=== PATIENT | female | born 1930 | race Caucasian/White ===

== ENCOUNTER 2017-09-16 18:35 | Inpatient (IN) | payer OTHER ==
[2017-09-16] MEDS ORDERED: ACETAMINOPHEN 325 MG TABLET (FP) PO ONE (18:54)
--- NOTE | 2017-09-16 18:54 | PDOC ---
History of Present Illness <Mai Oro - Last Filed: 09/16/17 18:50> - General History Source: Family Exam Limitations: No Limitations - History of Present Illness Initial Comments: 09/16/17 18:55 The patient is an 87-year-old female, with a significant past medical history of asthma and HTN, who presents to the ED s/p fall today. Pt states that her right knee buckled and she went down on her right hip. Pt has not been able to bear weight on her right leg due to pain. She denies any loss of consciousness. She denies taking any blood thinners. She denies having any other complaints. <Jyoti Cortez - Last Filed: 09/16/17 21:20> - General Chief Complaint: Injury Stated Complaint: RT KNEE PAIN Time Seen by Provider: 09/16/17 18:49 Past History - Past Medical History Asthma: Yes Cancer: Yes (status post left lumpectomy) HTN: Yes - Immunization History Td Vaccination: (3 years ago) - Suicide/Smoking/Psychosocial Hx Smoking History: Never smoked Have you smoked in the past 12 months: No Hx Alcohol Use: No (OCC) Substance Use Type: None <Mai Oro - Last Filed: 09/16/17 18:50> <Jyoti Cortez - Last Filed: 09/16/17 21:20> - Past Medical History Allergies/Adverse Reactions: Allergies Allergy/AdvReac Type Severity Reaction Status Date / Time cefixime [From Suprax] Allergy Verified 09/16/17 18:37 cephalexin [Cephalexin] Allergy Verified 09/16/17 18:37 latex Allergy Verified 09/16/17 18:37 Penicillins Allergy Verified 09/16/17 18:37 Home Medications: Ambulatory Orders Fluticasone Propionate [Flovent Diskus] 50 mcg IH DAILY 09/16/17 Latanoprost 0.005% Eye Drops [Xalatan 0.005% Eye Drops -] 1 drop OU HS 09/16/17 Montelukast Na [Singulair -] 10 mg PO HS 09/16/17 Olopatadine HCl 0.1% Ophth Wendy [Patanol (Nf)] 1 drop IO BID 09/16/17 Potassium Chloride [Klor-Con] 20 meq PO DAILY 09/16/17 Simvastatin 20 mg PO HS 09/16/17 Triamterene/Hydrochlorothiazid [Triamterene-Hctz 37.5-25 mg Cp] 1 each PO DAILY 09/16/17 Review of Systems - Review of Systems Able to Perform ROS?: Yes Comments:: 09/16/17 18:55 GENERAL/CONSTITUTIONAL: No fever or chills. No weakness. HEAD, EYES, EARS, NOSE AND THROAT: No change in vision. No ear pain or discharge. No sore throat. CARDIOVASCULAR: No chest pain or shortness of breath. RESPIRATORY: No cough, wheezing, or hemoptysis. GASTROINTESTINAL: No nausea, vomiting, diarrhea or constipation. GENITOURINARY: No dysuria, frequency, or change in urination. MUSCULOSKELETAL: (+)Right knee and hip pain. No joint swelling or pain. No neck or back pain. SKIN: No rash NEUROLOGIC: No headache, vertigo, loss of consciousness, or change in strength/ sensation. ENDOCRINE: No increased thirst. No abnormal weight change. HEMATOLOGIC/LYMPHATIC: No anemia, easy bleeding, or history of blood clots. ALLERGIC/IMMUNOLOGIC: No hives or skin allergy. <Jyoti Cortez - Last Filed: 09/16/17 21:20> *Physical Exam - Vital Signs Last Vital Signs Temp Pulse Resp BP Pulse Ox 98.1 F 88 16 151/78 100 09/16/17 18:35 09/16/17 18:35 09/16/17 18:35 09/16/17 18:35 09/16/17 18:35 - Physical Exam Comments: 09/16/17 18:56 GENERAL: Awake, alert, and fully oriented, in no acute distress HEAD: Atraumatic. No signs of trauma EYES: PERRLA, EOMI, sclera anicteric, conjunctiva clear ENT: Auricles normal inspection, nares patent, oropharynx clear without exudates. Moist mucosa. NECK: Normal ROM, supple, no lymphadenopathy, JVD, or masses LUNGS: Breath sounds equal, clear to auscultation bilaterally. No wheezes, and no crackles HEART: Regular rate and rhythm, normal S1 and S2, no murmurs, rubs or gallops ABDOMEN: Soft, nontender, normoactive bowel sounds. No guarding, no rebound. No masses EXTREMITIES: (+)Right hip and right knee tenderness with decreased range of motion due to pain. Right ankle is nontender. No clubbing or cyanosis. No cords , erythema. NEUROLOGICAL: SKIN: Warm, Dry, normal turgor, no rashes or lesions noted <Jyoti Cortez - Last Filed: 09/16/17 21:20> ED Treatment Course - RADIOLOGY Radiology Studies Ordered: Category Date Time Status HIP & PELVIS-RIGHT [RAD] Stat Radiology 09/16/17 18:49 Ordered KNEE 3 POS-RIGHT [RAD] Stat Radiology 09/16/17 18:49 Ordered <Mai Oro - Last Filed: 09/16/17 18:50> - LABORATORY CBC & Chemistry Diagram: 09/16/17 20:00 09/16/17 20:00 <Jyoti Cortez - Last Filed: 09/16/17 21:20> Medical Decision Making - Medical Decision Making 09/16/17 18:50 87yo F s/p fall c/o right knee and hip pain. Patient has been unable to ambulate after her fall secondary to pain states she did hit her head but denies any LOC does not take any blood thinners. Pain is mild has not taking anything for prior to her arrival. No associated deformity or swelling no ecchymosis no other injuries from her fall no complaints of neck or back pain. On exam her head is atraumatic her neck is nontender cardiac lung exam is unremarkable her right knee is tender to palpation with mild decreased range of motion secondary to pain no deformity no ecchymosis and no effusion. Right hip is tender to palpation has decreased flexion due to pain right ankle is nontender with full range of motion Differentials fracture versus contusion plan in control, x-rays of the hip and knee and reassessment patient lives at home with family who can help her ambulate will likely require outpatient follow-up if nothing is fractured <Mai Oro - Last Filed: 09/16/17 18:50> *DC/Admit/Observation/Transfer <Mai Oro - Last Filed: 09/16/17 18:50> - Attestations Scribe Attestion: 09/16/17 18:58 Documentation prepared by Jyoti Cortez, acting as medical microbiologist for Mai Oro MD. <Jyoti Cortez - Last Filed: 09/16/17 21:20> - Discharge Dispostion Condition at time of disposition: Stable
[2017-09-16] MEDS ORDERED: ACETAMINOPHEN 325 MG TABLET (FP) ONE (19:01)
--- NOTE | 2017-09-16 19:14 | PDOC ---
*Physical Exam - Vital Signs Last Vital Signs Temp Pulse Resp BP Pulse Ox 98.1 F 88 16 151/78 100 09/16/17 18:35 09/16/17 18:35 09/16/17 18:35 09/16/17 18:35 09/16/17 18:35 <Jyoti Cortez - Last Filed: 09/16/17 21:20> - Vital Signs Last Vital Signs Temp Pulse Resp BP Pulse Ox 98.1 F 88 16 151/78 100 09/16/17 18:35 09/16/17 18:35 09/16/17 18:35 09/16/17 18:35 09/16/17 18:35 <Sayra Zuluaga I - Last Filed: 09/16/17 21:47> ED Treatment Course - LABORATORY CBC & Chemistry Diagram: 09/16/17 20:00 09/16/17 20:00 - ADDITIONAL ORDERS Additional order review: Laboratory Results 09/16/17 09/16/17 09/16/17 20:20 20:00 20:00 PT with INR 12.2 INR 1.09 Sodium 137 Potassium 3.9 Chloride 99 Carbon Dioxide 29 H Anion Gap 9 BUN 24 H D Creatinine 0.8 D Creat Clearance w eGFR > 60 Random Glucose 93 Calcium 10.1 Total Bilirubin 0.5 AST 21 ALT 18 D Alkaline Phosphatase 50 D Creatine Kinase 99 Troponin I < 0.03 L Total Protein 7.8 Albumin 4.2 09/16/17 20:00 RBC 4.21 MCV 89.4 MCHC 33.6 RDW 12.6 MPV 7.9 Neutrophils % 71.4 Lymphocytes % 18.7 D Monocytes % 8.3 Eosinophils % 1.2 Basophils % 0.4 - Medications Given in the ED: ED Medications Discontinued Medications Generic Name Dose Route Start Last Admin Trade Name Freq PRN Reason Stop Dose Admin Acetaminophen 650 mg 09/16/17 18:54 09/16/17 19:00 Tylenol - PO 09/16/17 18:55 650 mg ONCE ONE Administration <Jyoti Cortez - Last Filed: 09/16/17 21:20> - LABORATORY CBC & Chemistry Diagram: 09/16/17 20:00 09/16/17 20:00 <Sayra Zuluaga I - Last Filed: 09/16/17 21:47> Progress Note - Progress Note Progress Note: Care of this patient was transferred to me from Dr. Oro at 1900 hrs. Patient is an 87-year-old female who fell on her right side. Patient said her knee gave out and she went down. Patient denies hitting her head or any loss of consciousness. Patient was unable to ambulate post fall secondary to pain in her hip and knee. Patient has a workup/x-rays pending for her complaints. 19:35 Knee x-ray negative for any acute pathology Right hip x-ray shows an impacted femoral neck fracture Reassessment of patient patient has tenderness on palpation over her hip. There is also some swelling and tenderness on palpation of the knee diffusely there is no patellar tenderness. Discussed with patient her x-ray findings of her hip fracture patient aware that she will need to be admitted to the hospital for surgical management of her hip fracture. Preadmission workup was ordered including chest x-ray, EKG, CBC, comprehensive medical panel, cardiac panel, type and screen, PT Head CT was also ordered given the patient's age and the fall even though she did not have any complaints of a headache or neurological symptoms or neurological abnormalities on exam. EKG shows normal sinus rhythm at a rate of 80 with a left bundle branch block. There is no old EKG to compare it to however patient denies any chest pain, syncope, near syncope, lightheadedness or cardiac symptoms prior to her fall. Chest x-ray interpreted by me there is no acute pathology there is no old chest x-ray to compare it to. 20:55 Reevaluated patient RE pain. Patient said she is comfortable does not need anything for pain at this time. Patient's head CT was done and read by the radiologist as no acute intracranial pathology severe microvascular disease and the age related volume loss. Dr. Layton was called orthopedist 21:[address] Layton who has accepted the patient and plans to take the patient to the operating room tomorrow morning for repair the hip. In addition to that discussed with the admitting team the hospitalist Dr. Dorman who was accepted the patient for admission and will do the medical clearance. <Sayra Zuluaga I - Last Filed: 09/16/17 21:47> Medical Decision Making - Medical Decision Making 09/16/17 21:20 09/16/17 20:55 Dr. Layton was paged and notified via phone service. Second page was placed at 21: 18. <Jyoti Coretz - Last Filed: 09/16/17 21:20> *DC/Admit/Observation/Transfer <Jyoti Cortez - Last Filed: 09/16/17 21:20> - Discharge Dispostion Admit: Yes <Sayra Zuluaga I - Last Filed: 09/16/17 21:47> Diagnosis at time of Disposition: Fracture of femoral neck, right Qualifiers: Encounter type: initial encounter Fracture type: closed Qualified Code(s): S72.001A - Fracture of unspecified part of neck of right femur, initial encounter for closed fracture - Discharge Dispostion Condition at time of disposition: Stable
[2017-09-16] MEDS ORDERED: SODIUM CHLORIDE 1,000 ML IV ONE (19:30)
[2017-09-16 20:39] LABS: BASOPHIL 0.4 % (0-2.0); EOSINOPHIL 1.2 % (0-4.5); MCH 30.1 pg (25.7-33.7); MCHC 33.6 g/dl (32.0-36.0); MEAN CELL VOLUME 89.4 fl (80-96); MEAN PLT VOLUME 7.9 fl (7.5-11.1); NEUTROPHILS 71.4 % (42.8-82.8); PLATELET COUNT 256 K/MM3 (134-434); RDW 12.6 % (11.6-15.6); WHITE BLOOD COUNT 6.3 K/mm3 (4.0-10.8)
[2017-09-16 20:46] LABS: INR 1.09 (0.82-1.09); PROTHROMBIN TIME (PATIENT) 12.2 SEC (10.2-13.0)
[2017-09-16 20:51] LABS: ALBUMIN 4.2 g/dl (3.5-5.0); ALK PHOS 50 U/L (32-92); ANION GAP 9 (8-16); BILIRUBIN,TOTAL 0.5 mg/dl (0.2-1.0); CALCIUM 10.1 mg/dl (8.4-10.2); CO2 29 mmol/L (22-28); CREATININE 0.8 mg/dl (0.6-1.3); GLUCOSE,RANDOM 93 mg/dl (74-106); SGOT/AST 21 U/L (10-42); SGPT/ALT 18 U/L (10-40); TOT PROT 7.8 g/dl (6.4-8.3)
[2017-09-16 20:51] LABS: CPK 99 IU/L (26-192)
[2017-09-16 21:07] LABS: TROPONIN I (DFP) < 0.03 ng/ml (0.03-0.50)
--- NOTE | 2017-09-16 21:48 | HP ---
CHIEF COMPLAINT: Right Hip Pain s/p fall PCP: HISTORY OF PRESENT ILLNESS: This is a 87 y/o woman with a past medical history HTN. Who presents to the ED with R- hip pain, unable to bear weight x today. Patient reports tripping up the stairs and falling onto her R- side and head. Patient reports being unable to bear weight onto the R- extremity. Patient denies LOC . Patient denies dizziness, SRIVASTAVA, fever, chills, cough, SOB, CP, Ap, N/V/D, constipation, dysuria ER course was notable for: (1) Xray Pelvis/R-Hip- acute R- femoral neck fx (2) CT Head- neg acute pathology (3) Xray R- knee- no acute fx or dislocation Recent Travel: None PAST MEDICAL HISTORY: HTN Asthma Glaucoma PAST SURGICAL HISTORY: Social History: Smoking: Never Alcohol: Occasional Drugs: None Lives alone- Independent Family History: Non-contributory Allergies cefixime [From Suprax] Allergy (Verified 09/16/17 18:37) cephalexin [Cephalexin] Allergy (Verified 09/16/17 18:37) latex Allergy (Verified 09/16/17 18:37) Penicillins Allergy (Verified 09/16/17 18:37) HOME MEDICATIONS: Home Medications Medication Instructions Recorded Fluticasone Propionate [Flovent 50 mcg IH DAILY 09/16/17 Diskus] Latanoprost 0.005% Eye Drops 1 drop OU HS 09/16/17 [Xalatan 0.005% Eye Drops -] Montelukast Na [Singulair -] 10 mg PO HS 09/16/17 Olopatadine HCl 0.1% Ophth Wendy 1 drop IO BID 09/16/17 [Patanol (Nf)] Potassium Chloride [Klor-Con] 20 meq PO DAILY 09/16/17 Simvastatin 20 mg PO HS 09/16/17 Triamterene/Hydrochlorothiazid 1 each PO DAILY 09/16/17 [Triamterene-Hctz 37.5-25 mg Cp] REVIEW OF SYSTEMS CONSTITUTIONAL: Absent: fever, chills, diaphoresis, generalized weakness, malaise, loss of appetite, weight change HEENT: Absent: rhinorrhea, nasal congestion, throat pain, throat swelling, difficulty swallowing, mouth swelling, ear pain, eye pain, visual changes CARDIOVASCULAR: Absent: chest pain, syncope, palpitations, irregular heart rate, lightheadedness , peripheral edema RESPIRATORY: Absent: cough, shortness of breath, dyspnea with exertion, orthopnea, wheezing, stridor, hemoptysis GASTROINTESTINAL: Absent: abdominal pain, abdominal distension, nausea, vomiting, diarrhea, constipation, melena, hematochezia GENITOURINARY: Absent: dysuria, frequency, urgency, hesitancy, hematuria, flank pain, genital pain MUSCULOSKELETAL: Right hip pain, right knee pain Absent: myalgia, arthralgia, joint swelling, back pain, neck pain SKIN: Absent: rash, itching, pallor HEMATOLOGIC/IMMUNOLOGIC: Absent: easy bleeding, easy bruising, lymphadenopathy, frequent infections ENDOCRINE: Absent: unexplained weight gain, unexplained weight loss, heat intolerance, cold intolerance NEUROLOGIC: unsteady gait Absent: headache, focal weakness or paresthesias, dizziness, seizure, mental status changes, bladder or bowel incontinence PSYCHIATRIC: Absent: anxiety, depression, suicidal or homicidal ideation, hallucinations. PHYSICAL EXAMINATION Vital Signs - 24 hr 09/16/17 18:35 Temperature 98.1 F Pulse Rate 88 Respiratory 16 Rate Blood Pressure 151/78 O2 Sat by Pulse 100 Oximetry (%) GENERAL: Awake, alert, and fully oriented, in no acute distress. HEAD: Normal with no signs of trauma. EYES: Pupils equal, round and reactive to light, extraocular movements intact, sclera anicteric, conjunctiva clear. No lid lag. EARS, NOSE, THROAT: Ears normal, nares patent, oropharynx clear without exudates. Moist mucous membranes. NECK: Normal range of motion, supple without lymphadenopathy, JVD, or masses. LUNGS: Breath sounds equal, clear to auscultation bilaterally. No wheezes, and no crackles. No accessory muscle use. HEART: Regular rate and rhythm, normal S1 and S2 without murmur, rub or gallop. ABDOMEN: Soft, nontender, not distended, normoactive bowel sounds, no guarding, no rebound, no masses. No hepatomegaly or splenomegaly. MUSCULOSKELETAL: Normal range of motion at RUE, LUE, LLE joints. No bony deformities. No CVA tenderness. R- hip tenderness. +shortening and external rotation of R-leg UPPER EXTREMITIES: 2+ pulses, warm, well-perfused. No cyanosis. No clubbing. No peripheral edema. LOWER EXTREMITIES: 2+ pulses, warm, well-perfused. No calf tenderness. No peripheral edema. NEUROLOGICAL: Cranial nerves II-XII intact. Normal speech. Gait not observed. PSYCHIATRIC: Cooperative. Good eye contact. Appropriate mood and affect. SKIN: Warm, dry, normal turgor, no rashes or lesions noted, normal capillary refill. Laboratory Results - last 24 hr 09/16/17 09/16/17 09/16/17 20:00 20:00 20:00 WBC 6.3 RBC 4.21 Hgb 12.7 Hct 37.6 MCV 89.4 MCH 30.1 MCHC 33.6 RDW 12.6 Plt Count 256 D MPV 7.9 Neutrophils % 71.4 Lymphocytes % 18.7 D Monocytes % 8.3 Eosinophils % 1.2 Basophils % 0.4 PT with INR 12.2 INR 1.09 Sodium 137 Potassium 3.9 Chloride 99 Carbon Dioxide 29 H Anion Gap 9 BUN 24 H D Creatinine 0.8 D Creat Clearance w eGFR > 60 Random Glucose 93 Calcium 10.1 Total Bilirubin 0.5 AST 21 ALT 18 D Alkaline Phosphatase 50 D Creatine Kinase Troponin I Total Protein 7.8 Albumin 4.2 09/16/17 20:20 WBC RBC Hgb Hct MCV MCH MCHC RDW Plt Count MPV Neutrophils % Lymphocytes % Monocytes % Eosinophils % Basophils % PT with INR INR Sodium Potassium Chloride Carbon Dioxide Anion Gap BUN Creatinine Creat Clearance w eGFR Random Glucose Calcium Total Bilirubin AST ALT Alkaline Phosphatase Creatine Kinase 99 Troponin I < 0.03 L Total Protein Albumin ASSESSMENT/PLAN: This is a 87 y/o woman with a PMHx of: HTN, Asthma, Glaucoma. Admitted to M/S R - Femoral Neck Fx for further evaluation of their emergent condition. Plan: FEN - D51/2NS@42cc/hr -Replete lytes prn - NPO Code Status: Full Code Dispo: Requires Inpatient Care Problem List - Problem (1) Fracture of femoral neck, right Assessment/Plan: - s/p mechanical fall - Xray/Pelvis R-Hip- Acute R-Femoral Neck fx - Ortho is following- OR tomorrow - EKG reviewed- NSR, LBBB - Appreciate Cardiology Consult for surgical clearance - Echo in am - Morphine Sulfate prn - Repeat CBC, BMP in am - Gentle IVF concern for fluid overload - Monitor vitals Code(s): S72.001A - FRACTURE OF UNSP PART OF NECK OF RIGHT FEMUR, INIT Qualifiers: Encounter type: initial encounter Fracture type: closed Qualified Code(s) : S72.001A - Fracture of unspecified part of neck of right femur, initial encounter for closed fracture (2) HTN (hypertension) Assessment/Plan: - Well Controlled - Monitor BP - Continue HCTZ - Monitor renal function Code(s): I10 - ESSENTIAL (PRIMARY) HYPERTENSION (3) Asthma Assessment/Plan: - No acute flare - Duoneb prn - Continue home med Code(s): J45.909 - UNSPECIFIED ASTHMA, UNCOMPLICATED (4) Glaucoma Assessment/Plan: - Continue home meds Code(s): H40.9 - UNSPECIFIED GLAUCOMA (5) DVT prophylaxis Assessment/Plan: - SCDs - Heparin SQ Code(s): [id number] - Visit type - Emergency Visit Emergency Visit: Yes ED Registration Date: 09/16/17 Care time: The patient presented to the Emergency Department on the above date and was hospitalized for further evaluation of their emergent condition. - New Patient This patient is new to me today: Yes Date on this admission: 09/16/17 - Critical Care Critical Care patient: No
[2017-09-16 22:54] LABS: URINE APPEARANCE Cloudy; URINE BILIRUBIN Negative (NEGATIVE); URINE BLOOD 2+ (NEGATIVE); URINE COLOR YELLOW; URINE GLUCOSE (UA) Negative (NEGATIVE); URINE KETONE Negative (NEGATIVE); URINE LEUK ESTERASE 3+ (NEGATIVE); URINE NITRITE Positive (NEGATIVE); URINE PROTEIN Trace (NEGATIVE); URINE UROBILINOGEN 0.2 (0.2-1.0)
[2017-09-16 23:00] LABS: URINE WBC MANY (0-5)
[2017-09-16 23:01] LABS: URINE BACTERIA MANY /hpf (NEGATIVE)
[2017-09-16 23:09] VITALS: BMI 23.0
[2017-09-16] MEDS ORDERED: DEXTROSE 5%-0.45% SALINE 1,000 ML IV SCH (23:45)
--- NOTE | 2017-09-17 07:41 | PN ---
Physical Exam: SUBJECTIVE: Patient seen and examined, reports pain to the right lower extremity , denies any parasthesia to the extremity. OBJECTIVE: patient is a 87 y/o woman with a past medical history HTN, patient was admitted from the emergency department for a right femoral neck fracture. Vital Signs Period Temp Pulse Resp BP Sys/Caicedo Pulse Ox Last 24 Hr 98.1 F-99.9 F 88-98 16-20 127-151/54-78 95-100 GENERAL: The patient is awake, alert, and fully oriented, in no acute distress. HEAD: Normal with no signs of trauma. EYES: PERRL, extraocular movements intact, sclera anicteric, conjunctiva clear. No ptosis. ENT: Ears normal, nares patent, oropharynx clear without exudates, moist mucous membranes. NECK: Trachea midline, full range of motion, supple. LUNGS: Breath sounds equal, clear to auscultation bilaterally, no wheezes, no crackles, no accessory muscle use. HEART: Regular rate and rhythm, S1, S2 without murmur, rub or gallop. ABDOMEN: Soft, nontender, nondistended, normoactive bowel sounds, no guarding, no rebound, no hepatosplenomegaly, no masses. EXTREMITIES: 2+ pulses, warm, well-perfused, no edema. RIGHT LOWER EXTREMITY: point tenderness noted to the right proximal thigh, less than 3 second capillary refill, +3 pedal pulse, externally rotated and shortnened NEUROLOGICAL: Cranial nerves II through XII grossly intact. Normal speech, gait not observed. PSYCH: Normal mood, normal affect. SKIN: Warm, dry, normal turgor, no rashes or lesions noted Laboratory Results - last 24 hr 09/16/17 09/16/17 09/16/17 20:00 20:00 20:00 WBC 6.3 RBC 4.21 Hgb 12.7 Hct 37.6 MCV 89.4 MCH 30.1 MCHC 33.6 RDW 12.6 Plt Count 256 D MPV 7.9 Neutrophils % 71.4 Lymphocytes % 18.7 D Monocytes % 8.3 Eosinophils % 1.2 Basophils % 0.4 PT with INR 12.2 INR 1.09 Sodium 137 Potassium 3.9 Chloride 99 Carbon Dioxide 29 H Anion Gap 9 BUN 24 H D Creatinine 0.8 D Creat Clearance w eGFR > 60 Random Glucose 93 Calcium 10.1 Total Bilirubin 0.5 AST 21 ALT 18 D Alkaline Phosphatase 50 D Creatine Kinase Troponin I Total Protein 7.8 Albumin 4.2 Urine Color Urine Appearance Urine pH Ur Specific [place] Urine Protein Urine Glucose (UA) Urine Ketones Urine Blood Urine Nitrite Urine Bilirubin Urine Urobilinogen Ur Leukocyte Esterase Urine RBC Urine WBC Ur Epithelial Cells Urine Bacteria 09/16/17 09/16/17 20:20 22:40 WBC RBC Hgb Hct MCV MCH MCHC RDW Plt Count MPV Neutrophils % Lymphocytes % Monocytes % Eosinophils % Basophils % PT with INR INR Sodium Potassium Chloride Carbon Dioxide Anion Gap BUN Creatinine Creat Clearance w eGFR Random Glucose Calcium Total Bilirubin AST ALT Alkaline Phosphatase Creatine Kinase 99 Troponin I < 0.03 L Total Protein Albumin Urine Color Yellow Urine Appearance Cloudy Urine pH 7.0 Ur Specific [place] 1.015 Urine Protein Trace Urine Glucose (UA) Negative Urine Ketones Negative Urine Blood 2+ H Urine Nitrite Positive Urine Bilirubin Negative Urine Urobilinogen 0.2 Ur Leukocyte Esterase 3+ H Urine RBC 10-20 Urine WBC Many Ur Epithelial Cells Few Urine Bacteria Many Active Medications Generic Name Dose Route Start Last Admin Trade Name Freq PRN Reason Stop Dose Admin Dextrose/Sodium Chloride 1,000 mls @ 42 mls/hr 09/16/17 23:45 09/17/17 00:00 D5-1/2ns - IV 42 mls/hr ASDIR RC Administration Levofloxacin 500 mg in 100 mls @ 100 mls/hr 09/17/17 07:00 Levaquin 500 Mg Premixed Ivpb - IVPB DAILY RC Morphine Sulfate 2 mg 09/16/17 23:42 09/17/17 00:00 Morphine Sulfate IVPUSH 2 mg Q6H PRN Administration PAIN ASSESSMENT/PLAN: 1) ms fracture of right femoral neck - xray reviewed, Dr Layton consulted and following - prn morphine - npo with gentle ivf - frequent neurovascular checks 2) cardiovascular hypertension - b/p at goal hold hctz abnormal ekg - left bundle branch block noted on ekg, change from prior 2013 - pt denies any cardiac history and has never been evaluated by a investment professional as per patient, appreciate investment professional input 3) pulm asthma - no acute excerbation at this time - continue prn albuterol 4) gu acute urinary tract infection - pending urine culture, start levaquin 500mg iv daily f/e/n - npo - replete potassium ppx - heparin - pepcid dispo: requires inpatient admission Visit type - Emergency Visit Emergency Visit: Yes ED Registration Date: 09/16/17 Care time: The patient presented to the Emergency Department on the above date and was hospitalized for further evaluation of their emergent condition. - New Patient This patient is new to me today: Yes Date on this admission: 09/17/17 - Critical Care Critical Care patient: No - Discharge Referral Referred to [facility] Med P.C.: No
[2017-09-17] MEDS: LEVOFLOXACIN 500 MG IVPB 500 MG/100 ML BAG IVPB SCH ×2 (08:11→09:29)
[2017-09-17 08:33] LABS: MCH 30.5 pg (25.7-33.7); MCHC 34.4 g/dl (32.0-36.0)
[2017-09-17 08:42] LABS: ANION GAP 9 (8-16); CALCIUM 8.8 mg/dl (8.4-10.2); CO2 25 mmol/L (22-28); CREATININE 0.9 mg/dl (0.6-1.3); GLUCOSE,RANDOM 156 mg/dl (74-106)
[2017-09-17 08:43] LABS: BASOPHIL 0.4 % (0-2.0); EOSINOPHIL 0.2 % (0-4.5); MEAN CELL VOLUME 88.6 fl (80-96); MEAN PLT VOLUME 7.7 fl (7.5-11.1); NEUTROPHILS 83.1 % (42.8-82.8); PLATELET COUNT 224 K/MM3 (134-434); RDW 12.5 % (11.6-15.6); WHITE BLOOD COUNT 7.7 K/mm3 (4.0-10.8)
[2017-09-17 09:36] LABS: MAGNESIUM 1.8 mg/dL (1.8-2.4); PHOSPHOROUS 3.8 mg/dl (2.5-4.6)
--- NOTE | 2017-09-17 09:48 | CON.ORTH ---
Consult Reason for Consultation:: right hip fx - Past Medical History ...: No - Alcohol/Substance Use Hx Alcohol Use: No (OCC) - Smoking History Smoking history: Never smoked Have you smoked in the past 12 months: No Home Medications - Allergies Allergies/Adverse Reactions: Allergies Allergy/AdvReac Type Severity Reaction Status Date / Time cefixime [From Suprax] Allergy Verified 09/16/17 18:37 cephalexin [Cephalexin] Allergy Verified 09/16/17 18:37 latex Allergy Verified 09/16/17 18:37 Penicillins Allergy Verified 09/16/17 18:37 - Home Medications Home Medications: Ambulatory Orders Fluticasone Propionate [Flovent Diskus] 50 mcg IH DAILY 09/16/17 Latanoprost 0.005% Eye Drops [Xalatan 0.005% Eye Drops -] 1 drop OU HS 09/16/17 Montelukast Na [Singulair -] 10 mg PO HS 09/16/17 Olopatadine HCl 0.1% Ophth Wendy [Patanol (Nf)] 1 drop IO BID 09/16/17 Potassium Chloride [Klor-Con] 20 meq PO DAILY 09/16/17 Simvastatin 20 mg PO HS 09/16/17 Triamterene/Hydrochlorothiazid [Triamterene-Hctz 37.5-25 mg Cp] 1 each PO DAILY 09/16/17 Physical Exam for Ortho Vital Signs: Vital Signs Temperature 99.9 F H 09/17/17 06:26 Pulse Rate 98 H 09/17/17 06:26 Respiratory Rate 18 09/17/17 06:26 Blood Pressure 127/57 09/17/17 06:26 O2 Sat by Pulse Oximetry (%) 95 09/17/17 06:24 Labs: CBC, BMP 09/17/17 07:25 09/17/17 07:00 INR, PTT INR 1.09 (0.82-1.09) 09/16/17 20:00 - Lower Extremity Hip: Yes: Right, Decreased ROM, Pain, Swelling, Other (nvi) Imaging - Results X-ray: Report Reviewed, Image Reviewed Assessment/Plan 87 y/o woman with a past medical history HTN. Who presents to the ED with R- hip pain, unable to bear weight. Patient reports tripping up the stairs and falling onto her R- side and head. Patient reports being unable to bear weight onto the R- extremity. Patient denies LOC . Patient denies dizziness, SRIVASTAVA, fever , chills, cough, SOB, CP, Ap, N/V/D, constipation, dysuria a/p- Right minimally displaced femoral neck fx Risks and benefits were d/w pt in detail OR for cannulated screws OR today if cleared Needs cardiac clearance NPO d/w Dr. Yo
[2017-09-17] MEDS: morphine SULFATE 4 MG/ML VIAL IVPUSH PRN ×4 (10:54→22:45)
[2017-09-17] MEDS ORDERED: ALBUTEROL SO4 0.083% IH SOL 2.5 MG/3 ML VIAL.NEB. NEB PRN (12:01)
[2017-09-17] MEDS ORDERED: POTASSIUM CHLORIDE TABS 20 MEQ TABLET.ER (FP) PO ONE (12:15)
[2017-09-17] MEDS: FAMOTIDINE 20 MG TABLET PO SCH ×2 (12:57→22:15)
[2017-09-17] MEDS: D5-1/2NS+20 MEQ KCL - 20 MEQ/1,000 ML INFUS.BAG IV SCH (12:59)
--- NOTE | 2017-09-17 14:03 | EKG ---
Test Reason : Blood Pressure : / mmHG Vent. Rate : 080 BPM Atrial Rate : 080 BPM P-R Int : 152 ms QRS Dur : 138 ms QT Int : 428 ms P-R-T Axes : 066 -10 099 degrees QTc Int : 493 ms NORMAL SINUS RHYTHM POSSIBLE LEFT ATRIAL ENLARGEMENT LEFT BUNDLE BRANCH BLOCK ABNORMAL ECG NO PREVIOUS ECGS AVAILABLE Confirmed by MALIK DIAZ MD ([id number]) on 09/17/2017 2:03:12 PM Referred By: DR VILLA Confirmed By:MALIK DIAZ MD
--- NOTE | 2017-09-17 15:27 | CON.CARD ---
Cardiology Consult (text) - Consultation Consultation Note: 87 y/o woman with a past medical history HTN, LBBB (unknown age) who presents with hip fracture s/p mechanical fall. . + rt hip pain, unable to bear weight. Patient denies LOC . Patient denies dizziness, SRIVASTAVA, fever, chills, cough, SOB, CP, Ap, N/V/D, constipation, dysuria ER course was notable for: (1) Xray Pelvis/R-Hip- acute R- femoral neck fx (2) CT Head- neg acute pathology (3) Xray R- knee- no acute fx or dislocation Recent Travel: None PAST MEDICAL HISTORY: HTN Asthma Glaucoma PAST SURGICAL HISTORY: Social History: Smoking: Never Ambulatory Orders Fluticasone Propionate [Flovent Diskus] 50 mcg IH DAILY 09/16/17 Latanoprost 0.005% Eye Drops [Xalatan 0.005% Eye Drops -] 1 drop OU HS 09/16/17 Montelukast Na [Singulair -] 10 mg PO HS 09/16/17 Olopatadine HCl 0.1% Ophth Wendy [Patanol (Nf)] 1 drop IO BID 09/16/17 Potassium Chloride [Klor-Con] 20 meq PO DAILY 09/16/17 Simvastatin 20 mg PO HS 09/16/17 Triamterene/Hydrochlorothiazid [Triamterene-Hctz 37.5-25 mg Cp] 1 each PO DAILY 09/16/17 Current Medications Albuterol Sulfate (Ventolin 0.083% Nebulizer Soln -) 1 amp NEB Q4H PRN PRN Reason: SHORT OF BREATH/WHEEZING Famotidine (Pepcid -) 20 mg PO BID [facility] Last Admin: 09/17/17 12:57 Dose: 20 mg Heparin Sodium (Porcine) (Heparin -) 5,000 unit SQ BID [facility] Levofloxacin (Levaquin 500 Mg Premixed Ivpb -) 500 mg in 100 mls @ 100 mls/hr IVPB DAILY [facility] Last Admin: 09/17/17 09:29 Dose: Not Given Potassium Chloride/Dextrose/Sod Cl (D5-1/2ns+20 Meq Kcl -) 20 meq in 1,000 mls @ 42 mls/hr IV ASDIR [facility] Last Admin: 09/17/17 12:59 Dose: 42 mls/hr Morphine Sulfate (Morphine Sulfate) 2 mg IVPUSH Q6H PRN PRN Reason: PAIN Last Admin: 09/17/17 10:54 Dose: 2 mg Vital Signs - 24 hr 09/16/17 09/16/17 09/16/17 18:35 21:20 22:17 Temperature 98.1 F 98.1 F Pulse Rate 88 92 H Pulse Rate [ 88 Left Radial] Respiratory 16 18 20 Rate Blood Pressure 151/78 141/54 Blood Pressure 138/72 [Left Arm] O2 Sat by Pulse 100 99 97 Oximetry (%) 09/17/17 09/17/17 09/17/17 06:24 06:26 14:24 Temperature 99.9 F H 99.0 F Pulse Rate 98 H 98 H Pulse Rate [ Left Radial] Respiratory 18 18 Rate Blood Pressure 127/57 125/59 Blood Pressure [Left Arm] O2 Sat by Pulse 95 96 Oximetry (%) Intake & Output 09/15/17 09/16/17 09/17/17 09/18/17 07:59 07:59 07:59 07:59 Intake Total 336 350 Output Total 170 Balance 336 180 Weight 134 lb CBC, BMP 09/17/17 07:25 09/17/17 07:00 Laboratory Tests 09/16/17 09/16/17 09/17/17 20:00 20:20 07:25 Sodium 137 Magnesium 1.8 Creatine Kinase 99 Troponin I < 0.03 L Based on RCRI, patient with intermediate risk for surgery. patient counseled on risk. No further testing needed prior to surgery. Echocardiogram ordered, surgery can occur prior to echocardiogram.
[2017-09-17] MEDS ORDERED: HEPARIN NA (PORCINE) 5,000 UNITS/ML 1ML VIAL SQ SCH (22:00)
[2017-09-18] MEDS ORDERED: PROPOFOL 20 ML ONE ×2 (07:00→08:48)
[2017-09-18] MEDS ORDERED: MIDAZOLAM HCL 2 MG/2 ML SINGLE DOSE VIAL ONE (07:00)
[2017-09-18] MEDS ORDERED: ONDANSETRON 4 MG/2 ML VIAL IVPUSH PRN (07:24)
--- NOTE | 2017-09-18 09:11 | OP ---
Operative Note - Note: Operative Date: 09/18/17 (betty) Pre-Operative Diagnosis: right femoral neck fx Operation: right hip cannulated screws Post-Operative Diagnosis: Same as Pre-op Surgeon: Jose G Yo Senior Fire Protection Engineer: Jefe Adams Anesthesiologist/EXHIBIT ELECTRICIAN: Zac Huang Anesthesia: Spinal Estimated Blood Loss (mls): 50 Operative Report Dictated: Yes
--- NOTE | 2017-09-18 09:20 | OP ---
DATE OF OPERATION: 09/18/2017 PREOPERATIVE DIAGNOSIS: Right hip fracture/femoral neck fracture. POSTOPERATIVE DIAGNOSIS: Right hip fracture/femoral neck fracture. PROCEDURE: Right hip cannulated screw. SURGEON: Jose G Welch MD RECORDS MANAGER: SHARIF Martinez ANESTHESIA: Spinal anesthesia. DRAINS: None. COMPLICATIONS: None. BLOOD LOSS: Minimal. BLOOD GIVEN: None. FLUID REPLACEMENT: 500 mL. INDICATIONS: This patient is an 87-year-old female with a preoperative diagnosis of a right femoral neck fracture. After understanding the potential risks, complications, alternatives, and benefits to surgical versus nonsurgical treatment, the patient elected to undergo this procedure. DESCRIPTION OF PROCEDURE: Patient brought to the operating room, peripheral IV placed. IV sedation given. Clindamycin 600 mg was given. Spinal anesthesia was induced. Ample Webril was placed around the perineal post and both ankles. She was placed onto the fracture table in standard position. X-rays were taken documenting excellent anatomic reduction in the anterior and lateral planes. Next, the right lower extremity was prepped and draped in sterile fashion, starting point marked out with a marking pen. Incision made with a No. 10 scalpel blade, subcutaneous hemostasis achieved with a Bovie cautery. Dissection done down through the lateral fascia and a Wakefield elevator used to clear the adipose tissue off the lateral aspect of the proximal femur. A partially threaded guidewire was placed into the center, center position in the femoral neck, documenting it with C-arm fluoroscopy. Then using the triangular guide, 2 other threaded guidewires were placed in a triangular fashion in the more anteroinferior and the posteroinferior good quality bone. Overall, her bone felt good. AP, lateral, oblique x-rays were done documenting excellent position in all planes of the threaded guidewires, and then after measuring it and overdrilling just the lateral cortex, I put in 3 screws of 85, 80, and 80 mm in length. Two were 6.0-mm screws and one was an 8.0-mm screw with a washer. This was in the center position where the bone was not quite as good. This fixation was quite good, however, using the larger screw. The guidewires were removed. Final x-rays were taken in the AP and lateral planes. Overall, the triangular arrangement of the screws looked quite good. The area was copiously irrigated and washed out. The lateral fascia closed with 0 Vicryl sutures. Vicryl 2-0 was used to close the deep dermal layer, and final skin reapproximation was done with a running subcuticular 4-0 Biosyn stitch. The area was then washed and dried, covered with Steri-Strips, Aquacel. Total operative time was about 35 minutes. There were no complications during the case. The patient tolerated the procedure quite well, was brought to the regular recovery room in stable condition. Estimated blood loss was quite minimal. JOSE G WELCH M.D. [id number]
--- NOTE | 2017-09-18 10:23 | PN ---
Physical Exam: SUBJECTIVE: Patient seen and examined, patiient is s/p right hip cannualated screws, reports pain to right lower extremity upon movement OBJECTIVE:patient is a 87 y/o woman with a past medical history HTN, patient was admitted from the emergency department for a right femoral neck fracture. Vital Signs Period Temp Pulse Resp BP Sys/Caicedo Pulse Ox Last 24 Hr 98.2 F-99.4 F 82-98 16-21 110-147/56-75 94-100 GENERAL: The patient is awake, alert, and fully oriented, in no acute distress. HEAD: Normal with no signs of trauma. EYES: PERRL, extraocular movements intact, sclera anicteric, conjunctiva clear. No ptosis. ENT: Ears normal, nares patent, oropharynx clear without exudates, moist mucous membranes. NECK: Trachea midline, full range of motion, supple. LUNGS: Breath sounds equal, clear to auscultation bilaterally, no wheezes, no crackles, no accessory muscle use. HEART: Regular rate and rhythm, S1, S2 without murmur, rub or gallop. ABDOMEN: Soft, nontender, nondistended, normoactive bowel sounds, no guarding, no rebound, no hepatosplenomegaly, no masses. EXTREMITIES: 2+ pulses, warm, well-perfused, no edema. RIGHT LOWER EXTREMITY: agucel dressing to right lateral proximal thigh, CDI, scd /ananya, less than 3 seconda capillary refill, + 3 pedal pulse NEUROLOGICAL: Cranial nerves II through XII grossly intact. Normal speech, gait not observed. PSYCH: Normal mood, normal affect. SKIN: Warm, dry, normal turgor, no rashes or lesions noted Active Medications Generic Name Dose Route Start Last Admin Trade Name Freq PRN Reason Stop Dose Admin Albuterol Sulfate 1 amp 09/17/17 12:01 Ventolin 0.083% Nebulizer Soln - NEB Q4H PRN SHORT OF BREATH/WHEEZING Enoxaparin Sodium 30 mg 09/19/17 08:00 Lovenox - SQ DAILY [facility] Famotidine 20 mg 09/17/17 12:15 09/17/17 22:15 Pepcid - PO 20 mg BID [facility] Administration Fentanyl 25 mcg 09/18/17 07:24 Sublimaze Injection - IVPUSH [id number] PRN PAIN Levofloxacin 500 mg in 100 mls @ 100 mls/hr 09/17/17 08:00 09/17/17 09:29 Levaquin 500 Mg Premixed Ivpb - IVPB Not Given DAILY [facility] Potassium Chloride/Dextrose/Sod Cl 20 meq in 1,000 mls @ 42 mls/hr 09/17/17 12 :00 09/17/17 12:59 D5-1/2ns+20 Meq Kcl - IV 42 mls/hr ASDIR [facility] Administration Morphine Sulfate 2 mg 09/17/17 22:28 09/17/17 22:45 Morphine Sulfate IVPUSH 2 mg Q4H PRN Administration PAIN Ondansetron HCl 4 mg 09/18/17 07:24 Zofran Injection IVPUSH Q6H PRN NAUSEA AND/OR VOMITING Microbiology 09/17/17 10:20 Urine - Urine - Catheterized Urine Culture - Preliminary Lactose Fermenting Neg Bacilli ASSESSMENT/PLAN: 1) ms fracture of right femoral neck, s/p right canualated screws, POD #0 (kate) - continue prn morphine for pain - physical therapy as per orthopedist - incentive spirometer. - monitor cbc 2) cardiovascular hypertension - b/p at goal hold hctz abnormal ekg - echo lv ef 60-65%, moderate TR, moderate pulmonary hypertension - left bundle branch block noted on ekg, patient is asymptomatic will require outpatient followup 3) pulm asthma - no acute excerbation at this time - continue prn albuterol 4) gu acute urinary tract infection - pending urine culture, preliminary +, continue levaquin 500mg iv daily f/e/n - low sodium diet ppx - lovenox - pepcid dispo: requires inpatient admission Visit type - Emergency Visit Emergency Visit: Yes ED Registration Date: 09/16/17 Care time: The patient presented to the Emergency Department on the above date and was hospitalized for further evaluation of their emergent condition. - New Patient This patient is new to me today: No - Critical Care Critical Care patient: No - Discharge Referral Referred to [facility] Med P.C.: No
[2017-09-18] MEDS: FAMOTIDINE 20 MG TABLET PO SCH ×2 (10:57→21:28)
[2017-09-18] MEDS: LEVOFLOXACIN 500 MG IVPB 500 MG/100 ML BAG IVPB SCH (10:58)
[2017-09-18] MEDS: D5-1/2NS+20 MEQ KCL - 20 MEQ/1,000 ML INFUS.BAG IV SCH (12:56)
[2017-09-18] MEDS: ACETAMINOPHEN WITH CODEINE 300MG/30MG TABLET PO PRN ×2 (13:54→19:58)
[2017-09-18] MEDS: morphine SULFATE 4 MG/ML VIAL IVPUSH PRN (15:58)
[2017-09-18] MEDS ORDERED: CLINDAMYCIN 600MG PREMIX IVPB 50 ML IVPB ONE (20:00)
[2017-09-19 08:20] LABS: EOSINOPHIL 0.5 % (0-4.5); MCH 29.4 pg (25.7-33.7); MEAN CELL VOLUME 89.1 fl (80-96); MEAN PLT VOLUME 7.9 fl (7.5-11.1); NEUTROPHILS 74.3 % (42.8-82.8); PLATELET COUNT 208 K/MM3 (134-434); RDW 12.5 % (11.6-15.6); WHITE BLOOD COUNT 7.6 K/mm3 (4.0-10.8)
--- NOTE | 2017-09-19 08:33 | PN ---
Progress Note (short form) - Note Progress Note: Ortho Pt seen and examined s/p right hip cannulated screws pod #1 Selected Entries 09/19/17 06:00 Temperature 99.6 F Pulse Rate 96 H Respiratory 18 Rate Blood Pressure 134/53 Laboratory Tests 09/19/17 07:00 WBC 7.6 Hgb 10.7 D Hct 32.4 Plt Count 208 dressing c/d/i, calf soft, nt nvi a/p PT TTWB dvt ppx pain control d/c planning
[2017-09-19 08:38] LABS: ALBUMIN 2.7 g/dl (3.5-5.0); ALK PHOS 35 U/L (32-92); ANION GAP 9 (8-16); BILIRUBIN,TOTAL 0.7 mg/dl (0.2-1.0); CALCIUM 8.4 mg/dl (8.4-10.2); CO2 26 mmol/L (22-28); CREATININE 0.7 mg/dl (0.6-1.3); GLUCOSE,RANDOM 129 mg/dl (74-106); MAGNESIUM 1.8 mg/dL (1.8-2.4); PHOSPHOROUS 2.5 mg/dl (2.5-4.6); SGOT/AST 18 U/L (10-42); SGPT/ALT 13 U/L (10-40)
[2017-09-19] MEDS: ACETAMINOPHEN WITH CODEINE 300MG/30MG TABLET PO PRN ×2 (08:48→13:44)
[2017-09-19] MEDS: ENOXAPARIN NA (PORCINE) 30 MG/0.3 ML DISP.SYRIN SQ SCH ×2 (08:50→09:19)
[2017-09-19] MEDS: FAMOTIDINE 20 MG TABLET PO SCH (09:19)
[2017-09-19] MEDS: LEVOFLOXACIN 500 MG IVPB 500 MG/100 ML BAG IVPB SCH (09:19)
[2017-09-19 09:26] VITALS: BP 116/74; PULSE 65; TEMP 98
--- NOTE | 2017-09-19 13:58 | DS ---
Physical Exam: SUBJECTIVE: Patient seen and examined, ambulatory at bedside with walker, reports pain to the right lower extremity, denies any chest pain or shortness of breath OBJECTIVE:This is a 87 y/o woman with a past medical history HTN. Who presents to the ED with R- hip pain, unable to bear weight x today. Patient reports tripping up the stairs and falling onto her R- side and head. Patient reports being unable to bear weight onto the R- extremity. Patient denies LOC . Patient denies dizziness, SRIVASTAVA, fever, chills, cough, SOB, CP, Ap, N/V/D, constipation, dysuria ER course was notable for: (1) Xray Pelvis/R-Hip- acute R- femoral neck fx (2) CT Head- neg acute pathology (3) Xray R- knee- no acute fx or dislocation Vital Signs Period Temp Pulse Resp BP Sys/Caicedo Pulse Ox Last 24 Hr 98 F-100.1 F 65-101 18-20 116-153/53-74 93-97 PHYSICAL EXAM GENERAL: The patient is awake, alert, and fully oriented, in no acute distress. HEAD: Normal with no signs of trauma. EYES: PERRL, extraocular movements intact, sclera anicteric, conjunctiva clear. ENT: Ears normal, nares patent, oropharynx clear without exudates, moist mucous membranes. NECK: Trachea midline, full range of motion, supple. LUNGS: Breath sounds equal, clear to auscultation bilaterally, no wheezes, no crackles, no accessory muscle use. HEART: Regular rate and rhythm, S1, S2 without murmur, rub or gallop. ABDOMEN: Soft, nontender, nondistended, normoactive bowel sounds, no guarding, no rebound, no hepatosplenomegaly, no masses. EXTREMITIES: 2+ pulses, warm, well-perfused, no edema. RIGHT LOWER EXTREMITY: aguacel dressing to right proximal thigh, no drainage noted, scd/ananya, less than 3 second capillary refill, + 3 pedal pulse NEUROLOGICAL: Cranial nerves II through XII grossly intact. Normal speech, gait not observed. PSYCH: Normal mood, normal affect. SKIN: Warm, dry, normal turgor, no rashes or lesions noted. LABS Laboratory Results - last 24 hr 09/19/17 09/19/17 07:00 07:00 WBC 7.6 RBC 3.64 Hgb 10.7 D Hct 32.4 MCV 89.1 MCH 29.4 MCHC 33.0 RDW 12.5 Plt Count 208 MPV 7.9 Neutrophils % 74.3 Lymphocytes % 13.2 D Monocytes % 11.7 H Eosinophils % 0.5 D Sodium 137 Potassium 3.5 Chloride 102 Carbon Dioxide 26 Anion Gap 9 BUN 14 D Creatinine 0.7 D Creat Clearance w eGFR > 60 Random Glucose 129 H Calcium 8.4 Phosphorus 2.5 D Magnesium 1.8 Total Bilirubin 0.7 D AST 18 ALT 13 D Alkaline Phosphatase 35 D Total Protein 6.0 L D Albumin 2.7 L D Microbiology 09/17/17 10:20 Urine - Urine - Catheterized Urine Culture - Final Escherichia Coli HOSPITAL COURSE: * fracture of right femoral neck, s/p right canualated screws, POD #1 (kate) , oain was controlled with prn morphine for pain * hyertension, b/p hctz was held during this admission * patient was noted to have abnormal ekg, echo lv ef 60-65%, moderate TR, moderate pulmonary hypertension, left bundle branch block noted on ekg, patient is asymptomatic will require outpatient followup with cardiology * pmh of asthma, no acute excerbation at this time, continued prn albuterol * acute urinary tract infection, urine culture, + ecoli, started on levaquin 500mg iv daily PLAN - discharge to subacute rehab - continue levaquin daily * Date of Admission:09/16/17 Date of Discharge: 09/19/17 Minutes to complete discharge: 45 Discharge Summary Reason For Visit: RT KNEE PAIN Current Active Problems Asthma (Acute) DVT prophylaxis (Acute) Fracture of femoral neck, right (Acute) Glaucoma (Acute) HTN (hypertension) (Acute) Condition: Improved - Instructions Diet, Activity, Other Instructions: continue levaquin daily for the next 7 days for urinary tract infection Post-op Instructions- Call the office for a follow-up appointment in 1 week - [phone] Apply Graduated Compression Stockings (TEDs) to both lower extremities- remove daily for hygiene ONLY Apply cold packs to affected area for 15 minutes every 2 hours. Patient may ambulate as tolerated-encourage self care (at least every 2-3 hours while awake) with walker Maintain Aquacel (waterproof) dressing to operative wound (will be removed by surgeon at first office visit) Shower with Aquacel dressing in place-if Aquacel integrity compromised, remove and apply dry sterile dressing and notify Orthopedist. DO NOT SHOWER unless Orthopedists approves without Aquacel dressing CONTACT THE OFFICE FOR ANY CHANGE IN YOUR CONDITION (for example-fever greater than 102 degrees,excessive bleeding from operative site, purulent drainage, severe swelling or pain) GO TO THE EMERGENCY ROOM IF THERE IS A MEDICAL EMERGENCY * If you have any questions, please do not hesitate to call the office - . Referrals: Jose G Yo MD [Staff Physician] - Disposition: LONGTERM FACILITY - Home Medications Comprehensive Discharge Medication List: Ambulatory Orders Fluticasone Propionate [Flovent Diskus] 50 mcg IH DAILY 09/16/17 Latanoprost 0.005% Eye Drops [Xalatan 0.005% Eye Drops -] 1 drop OU HS 09/16/17 Montelukast Na [Singulair -] 10 mg PO HS 09/16/17 Olopatadine HCl 0.1% Ophth Wendy [Patanol (Nf)] 1 drop IO BID 09/16/17 Potassium Chloride [Klor-Con] 20 meq PO DAILY 09/16/17 Simvastatin 20 mg PO HS 09/16/17 Triamterene/Hydrochlorothiazid [Triamterene-Hctz 37.5-25 mg Cp] 1 each PO DAILY 09/16/17 This patient is new to me today: No Emergency Visit: Yes ED Registration Date: 09/16/17 Care time: The patient presented to the Emergency Department on the above date and was hospitalized for further evaluation of their emergent condition. Critical Care patient: No - Discharge Referral Referred to [facility] Med P.C.: No
--- NOTE | 2017-09-19 14:20 | PN ---
Progress Note (short form) - Note Progress Note: 87F POD1 s/p right hip gamma nailing under spinal anesthetic. PT doing well, states that pain is under control, reports no anesthetic complications.
[2017-09-19] MEDS ORDERED: POTASSIUM CHLORIDE TABS 20 MEQ TABLET.ER (FP) PO ONE (14:30)
== END 2017-09-19 15:24 | DRG 481 ==
LOC: FER 18:35 → FM/S 22:17
PROVIDERS: ADMIT Internal Medicine; ATTEND Nurse Practitioner Family
PROC: 0QS604Z Reposition Right Upper Femur with Internal Fixation Device, Open Approach (ICD-10-PCS; principal; 2017-09-18 08:30)
DX: S72.001A Fracture of unspecified part of neck of right femur, initial encounter for closed fracture (principal); N39.0 Urinary tract infection, site not specified; I10 Essential (primary) hypertension; J45.909 Unspecified asthma, uncomplicated; H40.9 Unspecified glaucoma; Z88.0 Allergy status to penicillin; W10.8XXA Fall (on) (from) other stairs and steps, initial encounter; Y93.89 Activity, other specified; Y92.098 Other place in other non-institutional residence as the place of occurrence of the external cause; Y99.8 Other external cause status; I44.7 Left bundle-branch block, unspecified; Z91.040 Latex allergy status; I36.1 Nonrheumatic tricuspid (valve) insufficiency; I27.20 Pulmonary hypertension, unspecified
CPT/HCPCS: 36415; 70450-TC; 71010-TC; 73502-TC-RT; 73523-TC; 73562-TC-RT; 76000-TC; 80048; 80053; 81003; 81015; 82550; 83735; 84100; 84484; 85025; 85610; 86850; 86900; 86901; 87086; 87186; 93005; 93306-TC; 94010; 94760; 97116-GP; 97162-GP; 99284-25; J1644

== ENCOUNTER 2018-11-27 18:46 | Emergency (ER) | payer OTHER ==
[2018-11-27 19:19] VITALS: BP 162/89; PULSE 87; TEMP 97.4; BMI 22.3
--- NOTE | 2018-11-27 19:45 | PDOC ---
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 She notes first noticing this on her right side for many monthsbut now is noticeable on the left as well. Patient denies any temperature changes to the sites. Denies falls or any new activity recently. Denies recent travel or immobility. Pt also reports 2 days of dysuria, but no hematuria or frequency. The patient denies chest pain, shortness of breath, headache and dizziness. Denies fever, chills, nausea, vomit, diarrhea and constipation. Allergies: bacitracin, cefprozil, cefixime, cephalexin, latex Past surgical history: Lumpectomy 2006 Social history: None reported Past History - Past Medical History Allergies/Adverse Reactions: Allergies Allergy/AdvReac Type Severity Reaction Status Date / Time bacitracin Allergy Unknown Verified 11/27/18 18:51 cefprozil Allergy Unknown Verified 11/27/18 18:51 cefixime [From Suprax] Allergy Verified 11/27/18 18:51 cephalexin [Cephalexin] Allergy Verified 11/27/18 18:51 latex Allergy Verified 11/27/18 18:51 Home Medications: Ambulatory Orders Fluticasone Propionate [Flovent Diskus] 50 mcg IH DAILY 09/16/17 Latanoprost 0.005% Eye Drops [Xalatan 0.005% Eye Drops -] 1 drop OU HS 09/16/17 Montelukast Na [Singulair -] 10 mg PO HS 09/16/17 Olopatadine HCl 0.1% Ophth Wendy [Patanol (Nf)] 1 drop IO BID 09/16/17 Potassium Chloride [Klor-Con] 20 meq PO DAILY 09/16/17 Simvastatin 20 mg PO HS 09/16/17 Triamterene/Hydrochlorothiazid [Triamterene-Hctz 37.5-25 mg Cp] 1 each PO DAILY 09/16/17 Acetaminophen [Tylenol Extra Strength] 1,000 mg PO BID 11/27/18 Ammonium Lactate Cream [Lac-Hydrin 12% *Cream*] 1 applic TP DAILY 11/27/18 Calcium Carbonate/Vitamin D3 [Calcium 600+D Softgel] 1 each PO DAILY 11/27/18 Econazole Nitrate 30 gm TP DAILY 11/27/18 Fluocinolone Acetonide Oil [Dermotic] 20 ml TP DAILY 11/27/18 Nitrofurantoin Monohyd/M-Cryst [Macrobid -] 100 mg PO BID #10 capsule 11/27/18 Pseudoephedrine HCl [Sudafed] 30 mg PO BID 11/27/18 Anemia: No Asthma: Yes Cancer: Yes (status post left lumpectomy) Cardiac Disorders: No CVA: No COPD: No CHF: No Dementia: No Diabetes: No GI Disorders: No Disorders: No HTN: Yes Hypercholesterolemia: Yes Liver Disease: No Seizures: No Thyroid Disease: No - Surgical History Lung Surgery: Yes (left breast lumpectomy) - Immunization History Td Vaccination: (3 years ago) - Suicide/Smoking/Psychosocial Hx Smoking History: Never smoked Have you smoked in the past 12 months: No Hx Alcohol Use: No Drug/Substance Use Hx: No Substance Use Type: None Hx Substance Use Treatment: No Review of Systems - Review of Systems Comments:: 11/28/18 04:37 GENERAL/CONSTITUTIONAL: No fever or chills. No weakness. HEAD, EYES, EARS, NOSE AND THROAT: No change in vision. No ear pain or discharge. No sore throat. GASTROINTESTINAL: No nausea, vomiting, diarrhea or constipation. GENITOURINARY: No dysuria, frequency, or change in urination. CARDIOVASCULAR: No chest pain or shortness of breath. RESPIRATORY: No cough, wheezing, or hemoptysis. MUSCULOSKELETAL: (+) lower extremity edema. No neck or back pain. SKIN: No rash NEUROLOGIC: No headache, vertigo, loss of consciousness, or change in strength/ sensation. ENDOCRINE: No increased thirst. No abnormal weight change. HEMATOLOGIC/LYMPHATIC: No anemia, easy bleeding, or history of blood clots. ALLERGIC/IMMUNOLOGIC: No hives or skin allergy. *Physical Exam - Vital Signs Last Vital Signs Temp Pulse Resp BP Pulse Ox 97.4 F L 87 20 162/89 98 11/27/18 18:48 11/27/18 18:48 11/27/18 18:48 11/27/18 18:48 11/27/18 18:48 - Physical Exam Comments: 11/28/18 04:38 GENERAL: Awake, alert, and fully oriented, in no acute distress. Pleasant. HEAD: No signs of trauma EYES: PERRLA, EOMI, sclera anicteric, conjunctiva clear ENT: Oropharynx clear without exudates. Moist mucosa LUNGS: Breath sounds equal, clear to auscultation bilaterally. No wheezes, and no crackles HEART: Regular rate and rhythm, normal S1 and S2, no murmurs, rubs or gallops ABDOMEN: Soft, nontender, normoactive bowel sounds. No guarding, no rebound. No masses EXTREMITIES: Normal range of motion, 1+pitting edema from ankles to proximal calves. No cords, erythema, warmth or tenderness NEUROLOGICAL: Normal speech, cranial nerves intact, equal strength and sensation b/l SKIN: Warm, Dry, normal turgor, no rashes or lesions noted. Moderate Sedation - Procedure Monitoring Vital Signs: Procedure Monitoring Vital Signs Temperature 97.4 F L 11/27/18 18:48 Pulse Rate 87 11/27/18 18:48 Respiratory Rate 20 11/27/18 18:48 Blood Pressure 162/89 11/27/18 18:48 O2 Sat by Pulse Oximetry (%) 98 11/27/18 18:48 ED Treatment Course - LABORATORY CBC & Chemistry Diagram: 11/27/18 20:30 11/27/18 20:30 Medical Decision Making - Medical Decision Making 11/27/18 22:01 88yo F hx HTN, HL presents to the ED with LLE edema for 1 week and dysuria. Pt with chronic RLE edema. Vitals wnl. Exam with b/l symmetric 1+ pitting edema from the ankles to the proximal calves. DDx includes DVT vs CHF vs venous stasis. Labs including BNP wnl. Pt not clinically fluid overloaded. DVT study negative. Likely venous stasis. UA + for UTI, in the past had ecoli sensitive to macrobid. WIll treat with macrobid and DC with PMD f/u I discussed the physical exam findings, ancillary test results and final diagnoses with the patient. I answered all of the patient's questions. The patient was satisfied with the care received and felt comfortable with the discharge plan and treatment plan. The patient will call their primary care physician within 24 hours to arrange follow-up and will return to the Emergency Department with any new, persistent or worsening symptoms. . *DC/Admit/Observation/Transfer Diagnosis at time of Disposition: Lower extremity edema, Dysuria, UTI (urinary tract infection) - Discharge Dispostion Disposition: HOME Condition at time of disposition: Good Decision to Admit order: No - Prescriptions Prescriptions: Nitrofurantoin Monohyd/M-Cryst [Macrobid -] 100 mg PO BID #10 capsule - Referrals - Patient Instructions Printed Discharge Instructions: DI for Urinary Tract Infection (UTI), DI for Dependent Edema, DI for Peripheral Edema -- Bilateral Additional Instructions: Follow up with your primary doctor within 1 week for further evaluation of your lower extremity edema Take your antibiotics as prescribed twice a day for your urine infection Return to the emergency department if you have any new, worsening, or concerning symptoms - Post Discharge Activity - Attestations Physician Attestion: 11/27/18 22:23 I, Dr. Molly Gama MD, attest that this document has been prepared under my direction and personally reviewed by me in its entirety. I further attest, that it accurately reflects all work, treatment, procedures and medical decision -making performed by me.
[2018-11-27 20:38] LABS: BASO % 0.6 % (0-2.0); EOS % 1.3 % (0-4.5); HEMATOCRIT 38.9 % (32.4-45.2); HEMOGLOBIN 12.5 GM/dl (10.7-15.3); LYMPH % 21.3 % (8-40); MCH 29.2 pg (25.7-33.7); MCHC 32.3 g/dl (32.0-36.0); MEAN CELL VOLUME 90.5 fl (80-96); MEAN PLT VOLUME 7.3 fl (7.5-11.1); MONO % 11.3 % (3.8-10.2); NEUT % 65.5 % (42.8-82.8); PLATELET COUNT 274 K/MM3 (134-434); RBC 4.29 M/mm3 (3.60-5.2); RDW 13.2 % (11.6-15.6); WHITE BLOOD COUNT 6.3 K/mm3 (4.0-10.8)
[2018-11-27 20:56] LABS: ALBUMIN 3.9 g/dl (3.4-5.0); ALK PHOS 59 U/L (45-117); ANION GAP 8 MMOL/L (8-16); BILIRUBIN,TOTAL 0.4 mg/dl (0.2-1); BLOOD UREA NITROGEN 20 mg/dl (7-18); CALCIUM 9.5 mg/dl (8.5-10); CHLORIDE 101 mmol/L (98-107); CO2 30 mmol/L (21-32); CREATININE 0.6 mg/dl (0.55-1.3); GLUCOSE,RANDOM 108 mg/dl (74-106); POTASSIUM 3.7 mmol/L (3.5-5.1); SGOT/AST 17 U/L (15-37); SGPT/ALT 12 U/L (13-61); SODIUM 139 mmol/L (136-145); TOT PROT 7.6 g/dl (6.4-8.2)
[2018-11-27 21:21] LABS: N-TERMINAL BNP 151.1 pg/ml (5-450)
[2018-11-27 21:47] LABS: PH,URINE 8.5 (4.5-8); URINE APPEARANCE Slightly; URINE BILIRUBIN Negative (NEGATIVE); URINE COLOR Yellow; URINE GLUCOSE (UA) Negative (NEGATIVE); URINE KETONE Negative (NEGATIVE); URINE LEUK ESTERASE 3+ (NEGATIVE); URINE NITRITE Positive (NEGATIVE); URINE PROTEIN Negative (NEGATIVE); URINE UROBILINOGEN 0.2 (0.2-1.0)
[2018-11-27] MEDS ORDERED: NITROFURANTOIN MACROCRYSTAL 50 MG CAPSULE (FP) PO SCH (22:00)
[2018-11-27 22:13] LABS: EPI CELLS FEW /HPF; URINE BACTERIA 3+ /hpf (NEGATIVE); URINE RBC 40-60 /hpf (0-3); URINE WBC 40-60 (0-5)
[2018-11-27] MEDS ORDERED: NITROFURANTOIN MACROCRYSTAL 50 MG CAPSULE (FP) ONE (22:18)
== END 2018-11-27 22:28 | disposition home or self-care (01) ==
LOC: FER 18:46
DX: N39.0 Urinary tract infection, site not specified (principal); R60.0 Localized edema; R30.0 Dysuria; I10 Essential (primary) hypertension; E78.5 Hyperlipidemia, unspecified; J45.909 Unspecified asthma, uncomplicated; Z85.3 Personal history of malignant neoplasm of breast; Z88.1 Allergy status to other antibiotic agents; Z91.040 Latex allergy status
CPT/HCPCS: 36415; 80053; 81003; 81015; 83735; 83880; 85025; 87086; 87186; 93970-TC; 99283-25